=== PATIENT | female | born 1980 | race Caucasian/White ===

== ENCOUNTER → 2023-10-08 09:08 | Outpatient (CLI) | payer BC, SELFPAY ==
--- NOTE | 2023-10-08 11:09 | DI.RAD_ITS ---
Exam(s) RF CATHETER PATENCY CHECK W EXAM: RF CATHETER PATENCY CHECK W CLINICAL HISTORY: COMPLICATION OF CARDIAC PROSTHETIC DEVICE/IMPLANT, T82.9XXA, PATENCY CHECK. TECHNIQUE: 2D and realtime digital imaging was performed. CONTRAST MATERIAL: Omnipaque 350 COMPARISON: No exams were available for comparison FINDINGS: Contrast was injected into the port. There is a large amount of resistance to injection of contrast. Small amount of contrast is seen opacifying the tubing of the port. Some contrast is seen extravas ating from the tubing proximally near the level of the left clavicle. No extravasation is seen into the skin and subcutaneous tissues. The heart size is normal. The lungs are clear. Impression: Port tubing appears occluded. There is a small amount of extravasation from the tubing p roximally at the level of the clavicle. RADIATION DOSE DELIVERED: melodie Magana=71.3 mGy
[2023-10-08] MEDS: Omnipaque 350 MG/ML 50 ML BTL IJ (11:10)
== END ==
PROVIDERS: Visit Provider Surgery
DX: T82.9XXA Unspecified complication of cardiac and vascular prosthetic device, implant and graft, initial encounter (principal)
CPT/HCPCS: 76000; Q9967

== ENCOUNTER 2023-10-08 09:09 | Outpatient (RCR) | payer BC, SELFPAY | END 2023-11-03 23:59 | disposition home or self-care (01) | LOC: INF 09:09 | PROVIDERS: Visit Provider Surgery | DX: Z45.2 Encounter for adjustment and management of vascular access device (principal); T82.598A Other mechanical complication of other cardiac and vascular devices and implants, initial encounter | CPT/HCPCS: 96523 ==